=== PATIENT | male | born 1955 | race Caucasian/White ===

== ENCOUNTER 2017-09-09 20:23 | Emergency (ER) | payer SELFPAY ==
--- NOTE | 2017-09-09 20:56 | NUR ---
CALLED FOR TRIAGE, NO ANSWER.
--- NOTE | 2017-09-09 21:18 | NUR ---
2ND CALLED FOR TRIAGE, NO ANSWER.
--- NOTE | 2017-09-09 22:29 | NUR ---
CALLED X2; NO ANSWER
== END 2017-09-09 22:31 | disposition left against medical advice (07) ==
LOC: ER 20:27
DX: Z53.21 Procedure and treatment not carried out due to patient leaving prior to being seen by health care provider (principal)
CPT/HCPCS: A4606; Z7610